=== PATIENT | female | born 1990 | race American Indian/Alaskan Native ===

== ENCOUNTER 2016-10-23 11:30 | Emergency (ER) | payer SELFPAY ==
[2016-10-23 11:46] VITALS: BP 126/85
== END 2016-10-23 15:45 | disposition left against medical advice (07) ==
LOC: ED 11:30
DX: R05 Cough (principal); J45.909 Unspecified asthma, uncomplicated; Z53.21 Procedure and treatment not carried out due to patient leaving prior to being seen by health care provider